=== PATIENT | male | born 1945 | race Hispanic/Latino ===

== ENCOUNTER 2020-03-24 10:37 | Inpatient (IN) | payer MEDICARE, MEDICAID ==
[~2020-03-24] VITALS: Ht 162.6 cm; Wt 69.6 kg
[~2020-03-24 10:37] MED LIST: ALLOPURINOL300 MG PO; AMLODIPINE5 MG PO; ASPIRIN81 MG PO; ATORVASTATIN CA40 MG PO; CILOSTAZOL100 MG PO; CLOPIDOGREL75 MG PO; INTEGRA PLUS PO; INVOKANA100 MG PO; ISOSORB MONO30 MG PO; LOPRESSOR50 M2 PO; NOVOLOG100 UNIT/M SC; PANTOPRAZOLE SO40 M1 PO; TAMSULOSIN HCL0.4 MG PO; TOUJEO SOL300 UNIT/M SC; TRAMADOL HCL50 MG PO; VICTOZA18 MG/3 ML SC; VITAMIN D3400 UNI2 PO
--- NOTE | 2020-03-24 10:40 | NUR ---
PT AMB TO ROOM WITH STEADY GAIT FOR TRIAGE
--- NOTE | 2020-03-24 10:50 | NUR ---
PT CHANGED TO GOWN. MONITORS APPLIED. PT AO X 3. REPORTS DECREASE IN APPETITE AND METALIC TASTE IN MOUTH X 3 DAYS. NO RESPIRATORY SYMPTOMS OR CARDIAC COMPLAINTS.
[2020-03-24] MEDS ORDERED: CYPROHEPTAD4 MG PO (10:52)
[2020-03-24 11:15] LABS: HEMATOCRIT 31.7 % (39.0-50.0); HEMOGLOBIN 9.9 g/dl (14.0-18.0); IMMATURE GRANULOCYTES 0.3 % (0.0-5.0); MEAN CELL VOLUME 92.2 fL CALC (80.0-100.0); MEAN CORPUSCULAR HGB 28.8 pG CALC (26.0-32.0); MEAN CORPUSCULAR HGB CONC 31.2 g/dL CAL (32.0-36.0); NEUT# 2.53 thou/uL (1.82-7.42); RED BLOOD COUNT 3.44 mill/uL (4.70-6.10)
[2020-03-24 11:26] LABS: CREATININE 1.9 mg/dL (0.7-1.3); POTASSIUM 4.5 mmol/l (3.5-5.1)
[2020-03-24 11:39] LABS: URINE BILIRUBIN - DIPSTICK NEGATIVE (NEGATIVE); URINE COLOR YELLOW; URINE GLUCOSE - DIPSTICK NEGATIVE (NEGATIVE); URINE KETONE TRACE mg/dL (NEGATIVE); URINE NITRITE - DIPSTICK NEGATIVE (Negative); URINE PROTEIN - DIPSTICK >=300 mg/dL (NEG-TRACE); URINE SPECIFIC GRAVITY 1.025; URINE UROBILINOGEN - DIPSTICK 0.2 E.U./dL (0.2)
[2020-03-24 11:41] LABS: URINE LEUK ESTERASE SMALL (NEGATIVE)
[2020-03-24 11:43] LABS: URINE BLOOD DIPSTICK NEGATIVE (NEGATIVE)
[2020-03-24 11:47] LABS: URINE BACTERIA FEW hpf; URINE EPITHELIAL CELLS RARE EPI/hpf (0-FEW); URINE MUCUS FEW hpf (NONE-FEW); URINE RBC 0-2 RBC/hpf (0-5)
--- NOTE | 2020-03-24 11:50 | NUR ---
PT RESTING ON STRETCHER AWAITING RESULTS
--- NOTE | 2020-03-24 12:49 | NUR ---
SBAR PRINTED TO FLOOR
--- NOTE | 2020-03-24 12:52 | NUR ---
IV INFUSING. PT ON PHONE WITH FAMILY
[2020-03-24 13:07] LABS: C-REACTIVE PROTEIN 14.7 mg/dL (0-0.9)
--- NOTE | 2020-03-24 13:35 | NUR ---
PT RESTING ON STRETCHER AWAITING ADMISSION
--- NOTE | 2020-03-24 14:29 | NUR ---
REPORT CALLED TO [facility]
[2020-03-24 14:50] VITALS: BP 123/56
--- NOTE | 2020-03-24 15:46 | NUR ---
PT ARRIVES TO ROOM 290 FROM ER ACCOMPANIED BY SOCORRO SANTIAG[facility]. PT IS ALERT AND ORIENTED X 3, AMBULATORY TO BR. LUNGS CLEAR, RA. BM YESTERDAY. PT WITH HERNIA TO RLQ THAT WAS TO BE REPAIRED. AFEBRILE AT THIS TIME AT 97.7. PT ORIENTED TO ROOM, CALL TRACY, THERMOSTAT, PHONE. NO EVIDENCE OF DISTRESS.
--- NOTE | 2020-03-24 18:02 | NUR ---
PT SEEN WALKING AROUND ROOM WITH STEADY GAIT. DAUGHTER HAS LEFT HIM A PHONE DRAWER IN HAND. NO FEVER, NO COMPLAINTS.
--- NOTE | 2020-03-24 19:01 | NUR ---
REPORT FROM PARKER RN. PT ALERT AND ORIENTED. RESTING IN BED, NO APPARENT DISTRESS NOTED. PT DENIES ANY PAIN OR DISCOMFORT. LAW EXAMINER IN PLACE. IVF INFUSING WITHOUT DIFFICULTY. DISCUSSED POC. PT VERBALIZED UNDERSTANDING. CALL LIGHT WITHIN REACH. WILL CONTINUE TO MONITOR.
[2020-03-24 19:09] VITALS: BP 113/54
--- NOTE | 2020-03-24 21:45 | NUR ---
PT MEDICATED ORDERED. PT DENIES ANY PAIN OR DISCOMFORT. NO CURRENT WANTS OR NEEDS. CALL LIGHT WITHIN REACH. WILL CONTINUE TO MONITOR.
[2020-03-25 00:34] VITALS: BP 124/63
--- NOTE | 2020-03-25 00:38 | NUR ---
PT RESTING IN BED WITH EYES CLOSED. NO APPARENT DISTRESS NOTED. RESPIRATIONS EVEN AND UNLABORED. CALL LIGHT WITHIN REACH. WILL CONTINUE TO MONITOR.
[2020-03-25 04:27] VITALS: BP 140/61
--- NOTE | 2020-03-25 04:27 | NUR ---
PT RESTING IN BED. NO APPARENT DISTRESS NOTED. PT DENIES ANY PAIN OR DISCOMFORT AT THIS TIME. CLINICAL STAFF RN IN PLACE. IVF INFUSING WITHOUT DIFFICULTY. VSS. PT DENIES ANY CURRENT WANTS OR NEEDS. CALL LIGHT WITHIN REACH. WILL CONTINUE TO MONITOR.
[2020-03-25 05:28] LABS: HEMATOCRIT 28.8 % (39.0-50.0); HEMOGLOBIN 8.9 g/dl (14.0-18.0); IMMATURE GRANULOCYTES 0.3 % (0.0-5.0); MEAN CELL VOLUME 93.5 fL CALC (80.0-100.0); MEAN CORPUSCULAR HGB 28.9 pG CALC (26.0-32.0); MEAN CORPUSCULAR HGB CONC 30.9 g/dL CAL (32.0-36.0); NEUT# 2.1 thou/uL (1.82-7.42); RED BLOOD COUNT 3.08 mill/uL (4.70-6.10)
[2020-03-25 05:50] LABS: BILIRUBIN, TOTAL 0.4 mg/dL (0.0-1.4); CREATININE 1.4 mg/dL (0.7-1.3); MAGNESIUM 2.3 mg/dL (1.6-2.3); POTASSIUM 4.6 mmol/l (3.5-5.1)
[2020-03-25 06:03] LABS: ALBUMIN 3.2 g/dL (3.2-5.0); C-REACTIVE PROTEIN 14.9 mg/dL (0-0.9)
[2020-03-25 08:00] VITALS: BP 141/63
--- NOTE | 2020-03-25 09:00 | NUR ---
PT IS AWAKE, ALERT, AMBULATORY IN ROOM. LUNGS CLEAR BUT DIMINISHED, RA. SKIN INTACT. PT DENIES SHORTNESS OF BREATH OR CHEST PAIN.
[2020-03-25 11:00] VITALS: BP 126/59
[2020-03-25] MEDS ORDERED: LEVAQUIN750 MG PO (12:15)
--- NOTE | 2020-03-25 13:00 | NUR ---
PT HAS BEEN DISCHARGED TO HOME. PT VERBALIZED UNDERSTANDING OF DC INSTRUCTIONS, TAKEN BY WHEELCHAIR TO HIS VEHICLE. PT AWARE OF THE UNCERTAINTY OF HAVING COVID-19, INSTRUCTED TO SELF ISOLATE UNTIL SWAB RESULT COMES BACK. PT LEAVES [facility] IN STABLE CONDITION, NO COMPLAINTS, NO EVIDENCE OF DISTRESS.
--- NOTE | 2020-03-27 17:27 | NUR ---
ATTEMPT TO CALL COVID19 RESULTS NO ANSWER
--- NOTE | 2020-03-28 09:01 | NUR ---
Notified patient of positive results. Patient denies difficulty breathing or fever. Advised patient to quarantine until contacted by the [facility] with further instructions. Advised patient to return to ED with difficulty breathing or other urgent needs. Patient verbalized understanding.
[2020-05-13] MEDS ORDERED: METOPROL TAR25 MG PO (08:37)
== END 2020-03-25 13:00 | disposition home or self-care (01) | DRG 177 ==
LOC: ED 10:37 → ED-I 12:19 → ED 12:45 → ED-I 12:46 → MS2 12:46 → ED-I 12:46 → MS2 13:24
PROVIDERS: Family Medicine; Nurse Practitioner; ADMIT Internal Medicine; ATTEND Internal Medicine
DX: U07.1 COVID-19 (principal); J12.89 Other viral pneumonia; N39.0 Urinary tract infection, site not specified; R43.9 Unspecified disturbances of smell and taste; E11.22 Type 2 diabetes mellitus with diabetic chronic kidney disease; N18.9 Chronic kidney disease, unspecified; I25.10 Atherosclerotic heart disease of native coronary artery without angina pectoris; E11.51 Type 2 diabetes mellitus with diabetic peripheral angiopathy without gangrene; K43.9 Ventral hernia without obstruction or gangrene; B96.1 Klebsiella pneumoniae [K. pneumoniae] as the cause of diseases classified elsewhere; Z86.79 Personal history of other diseases of the circulatory system; Z95.1 Presence of aortocoronary bypass graft; Z95.820 Peripheral vascular angioplasty status with implants and grafts; Z85.028 Personal history of other malignant neoplasm of stomach
CPT/HCPCS: J1650

== ENCOUNTER 2020-07-28 10:56 | Day surgery (SDC) | payer MEDICARE, MEDICAID ==
[~2020-07-28] VITALS: Ht 162.6 cm; Wt 65.8 kg
[~2020-07-28 10:56] MED LIST changes: +CYPROHEPTAD4 MG PO; +LEVAQUIN750 MG PO; +METOPROL TAR25 MG PO; +PREVAGEN10 MG PO; +VITAMIN D31000 UNI1 PO
[2020-07-28 12:17] LABS: HEMATOCRIT 33.1 % (39.0-50.0); HEMOGLOBIN 10.4 g/dl (14.0-18.0); IMMATURE GRANULOCYTES 0.2 % (0.0-5.0); MEAN CORPUSCULAR HGB 29.5 pG CALC (26.0-32.0); MEAN CORPUSCULAR HGB CONC 31.4 g/dL CAL (32.0-36.0); NEUT# 3.23 thou/uL (1.82-7.42); RED BLOOD COUNT 3.52 mill/uL (4.70-6.10); RED CELL DISTRI WIDTH 13.2 % (11.5-15.5)
[2020-07-28 12:55] LABS: ANION GAP 14 (6-22 (CALC)); BUN 35 mg/dL (8-23); BUN/CREATININE RATIO 27 (12-20 (CALC)); CARBON DIOXIDE 23 mmol/l (22-30); CHLORIDE 110 mmol/l (95-108); CREATININE 1.3 mg/dL (0.7-1.3); GFR 54 ML/MIN (>=60 (CALC)); GFR FOR AFR.AMER. > 60 ML/MIN (>=60 (CALC)); SODIUM 143 mmol/l (137-146)
[2020-07-28] MEDS ORDERED: PERCOCET 5/325M1 TAB PO (14:18)
[2020-07-28 14:46] VITALS: BP 163/71
== END 2020-07-28 15:00 | disposition home or self-care (01) ==
LOC: ORM 10:56
PROVIDERS: ATTEND Surgery
PROC: 0WUF0JZ Supplement Abdominal Wall with Synthetic Substitute, Open Approach (ICD-10-PCS; principal; 2020-07-28)
DX: K43.2 Incisional hernia without obstruction or gangrene (principal); Z90.3 Acquired absence of stomach [part of]; Z85.028 Personal history of other malignant neoplasm of stomach; Z95.5 Presence of coronary angioplasty implant and graft; Z95.820 Peripheral vascular angioplasty status with implants and grafts; Z20.828 Contact with and (suspected) exposure to other viral communicable diseases
CPT/HCPCS: J2710

== ENCOUNTER 2022-05-21 08:27 | Day surgery (SDC) | payer MEDICARE, MEDICAID ==
[~2022-05-21] VITALS: Ht 165.1 cm; Wt 60.3 kg
[~2022-05-21 08:27] MED LIST changes: +IRON325 M1 PO; +LISINOPRIL2.5 MG PO; +PERCOCET 5/325M1 TAB PO; +SERTRALINE25 MG PO; +VITAMIN B-12500 MCG PO
[2022-05-21 10:23] VITALS: BP 132/76
== END 2022-05-21 10:40 | disposition home or self-care (01) ==
LOC: ENDO 08:27 → ORM 09:00 → ENDO 09:00 → ORM 10:30 → ENDO 10:40 → ORM 12:00 → ENDO 05-23 10:40
PROVIDERS: ATTEND Internal Medicine Gastroenterology
PROC: 0DB68ZX Excision of Stomach, Via Natural or Artificial Opening Endoscopic, Diagnostic (ICD-10-PCS; principal; 2022-05-21)
DX: C16.2 Malignant neoplasm of body of stomach (principal); Z90.3 Acquired absence of stomach [part of]